=== PATIENT | male | born 1945 | race Caucasian/White ===

== ENCOUNTER 2020-03-19 08:15 | Inpatient (IN) | payer MEDICARE ==
[~2020-03-19] VITALS: Ht 177.8 cm; Wt 91.2 kg
--- NOTE | 2020-03-19 08:23 | NUR ---
[id number] home, c/o chest pain on and off since 010. aspirin and nitro given. Patient a/ox4, breathing even and unlabored, denies sob. Needs attended. Changed into gown, attached to the equipment monitor phototypesetting.
[2020-03-19 08:35] LABS: BASOPHILS % (AUTO) 0.3 % (0.0-2.0); EOSINOPHILS % (AUTO) 0.1 % (0.0-6.0); HEMATOCRIT 42 % (39-51); HEMOGLOBIN 14.1 g/dL (13.5-17.5); LYMPHOCYTES # (AUTO) 0.9 /CMM (0.8-4.8); LYMPHOCYTES % (AUTO) 8.8 % (20.0-44.0); MEAN CORPUSCULAR HGB CONC 33 g/dl (31.0-36.0); MEAN CORPUSCULAR VOLUME 92 fL (80-96); MONOCYTES # (AUTO) 0.7 /CMM (0.1-1.30); MONOCYTES % (AUTO) 6.5 % (2.0-12.0); NEUTROPHILS # (AUTO) 8.9 /CMM (1.8-8.9); NEUTROPHILS % (AUTO) 84.3 % (43.0-81.0); PLATELET COUNT (AUTO) 142 /CMM (150-450); RED BLOOD CELL COUNT(AUTO) 4.58 MIL/uL (4.5-6.0); WHITE BLOOD COUNT (AUTO) 10.6 K/uL (4.3-11.0)
[2020-03-19] MEDS ORDERED: MORPHINE SULFATE INJ 4 MG/ML DISP.SYRIN ONE (08:52)
[2020-03-19] MEDS ORDERED: ONDANSETRON HCL/PF 4 MG/2 ML VIAL ONE (08:52)
[2020-03-19 08:54] LABS: CALCIUM, SERUM 8.3 mg/dL (8.5-10.1); CARBON DIOXIDE 24 mmol/L (21-32); CHLORIDE 97 mmol/L (98-107); GLUCOSE 155 mg/dL (74-106); POTASSIUM 3.6 mmol/L (3.5-5.1); SODIUM SERUM 131 mmol/L (136-145); UREA NITROGEN, BLOOD 17 mg/dL (7-18)
[2020-03-19] MEDS ORDERED: MORPHINE SULFATE INJ 2 MG/ML DISP.SYRIN IV ONE ×2 (09:00→12:30)
[2020-03-19] MEDS ORDERED: ONDANSETRON HCL/PF 4 MG/2 ML VIAL IVP ONE ×2 (09:00→12:30)
--- NOTE | 2020-03-19 09:27 | NUR ---
[facility] cardiology paged pension adviser health safety specialist
--- NOTE | 2020-03-19 09:45 | NUR ---
dr. barahona at bedside for eval.
--- NOTE | 2020-03-19 09:52 | NUR ---
PATIENT TAKEN TO CT. IN STABLE CONDITION.
[2020-03-19] MEDS ORDERED: ESCI20TA PO (10:08)
[2020-03-19] MEDS ORDERED: CLOP75TA15 PO (10:08)
[2020-03-19] MEDS ORDERED: GABA300C PO (10:08)
[2020-03-19] MEDS ORDERED: HYDR12.55 PO (10:08)
[2020-03-19] MEDS ORDERED: MIRT15TA7 PO (10:08)
[2020-03-19] MEDS ORDERED: LOSA50TA39 PO (10:08)
[2020-03-19] MEDS ORDERED: ATOR20TA PO (10:08)
[2020-03-19] MEDS ORDERED: AMLO5TAB9 PO (10:08)
[2020-03-19] MEDS ORDERED: PANTOPRAZOLE 40 MG VIAL IV ONE (10:30)
[2020-03-19] MEDS ORDERED: NITROGLYCERIN 0.4 MG/TAB BOTTLE SL ONE ×2 (10:30→12:00)
[2020-03-19] MEDS ORDERED: IV NS 0.9% 500 ML IV PRN (10:30)
--- NOTE | 2020-03-19 10:30 | NUR ---
CALLED [facility] TRANSFER LINE TO [facility] PT REQUESTED TRANSFER. iNFORMED TO WAIT FOR MORE RADIOLOGY IMAGING RESULTS
[2020-03-19] MEDS ORDERED: PANTOPRAZOLE 40 MG VIAL ONE (10:38)
--- NOTE | 2020-03-19 10:53 | NUR ---
PATIENT TRANSFERRED TO CT.
[2020-03-19] MEDS ORDERED: NITROGLYCERIN 0.4 MG/TAB BOTTLE ONE (10:55)
[2020-03-19] MEDS ORDERED: METOPROLOL TARTRATE INJ 5 MG/5 ML AMPUL ONE ×3 (10:55→13:13)
[2020-03-19] MEDS: METOPROLOL TARTRATE INJ 5 MG/5 ML AMPUL IVP PRN ×9 (11:18→11:58)
[2020-03-19] MEDS ORDERED: IOHEXOL-350 100 ML VIAL IV ONE (11:22)
[2020-03-19] MEDS ORDERED: IV NS 0.9% 250 ML IV ONE (11:22)
--- NOTE | 2020-03-19 11:47 | NUR ---
SPOKE TO [facility] TRANSFER LINE. WAS INFORMED OF PT BEING ON THE WAITING LIST AND AWAITING FINANCIAL CLEARANCE. SENT FACESHEET TO [phone].
--- NOTE | 2020-03-19 12:13 | NUR ---
1110 received from ER via wheelchairl AAOx4 denies CP SOB, c/o mild abdominal pain3/10 with some nausea; consented to CTA Heart; tolerated procedure with Metoprolol 5mg IVP x 9 doses and NTG SL 0.4 mg Tablet at 1210 CTA Heart /ABD/Pelvis completed ; pt stable denies CP/SOB. wheeled back to ER room 4, Report given to RN
--- NOTE | 2020-03-19 12:20 | NUR ---
PATIENT CAME BACK FROM CT. RESTING IN BED. VITALS STABLE.
[2020-03-19] MEDS ORDERED: IV NS 0.9% 1,000 ML BAG IV ONE (12:30)
--- NOTE | 2020-03-19 12:39 | NUR ---
Patient refused Morphine and Zofran at this time, patient stated he's comfortable and pain is 2/10 at this time. Explained risks and benefits.
[2020-03-19 13:00] VITALS: BP 167/87
--- NOTE | 2020-03-19 13:23 | NUR ---
[facility] TRANSFER LINE INFORMED ME THAT THEY ARE ABLE TO TRANSFER THE PT TO THEIR HOSPITAL AFTER ADMISSION. DR TAI IS AWARE AND ABLE TO ACCEPT AT [facility]. WE ARE STILL AWAITING HOSPITAL BED AFTER FINANCIAL CLEARANCE
--- NOTE | 2020-03-19 13:31 | NUR ---
CALLED [facility]. VEGETABLE TRIMMER WAS PAGED.
--- NOTE | 2020-03-19 13:33 | NUR ---
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
--- NOTE | 2020-03-19 13:36 | NUR ---
going to 310.1
--- NOTE | 2020-03-19 14:03 | NUR ---
REPORT GIVEN TO NISSA GUO.
--- NOTE | 2020-03-19 14:30 | NUR ---
PATIENT TRANSFERRED TO ROOM 310-1 VIA ACLS PROTOCOL. NO DISTRESS NOTED. NEEDS ATTENDED. ENDORSED TO NISSA GUO.
[2020-03-19 16:10] LABS: THYROID STIMULATING HORMONE 1.18 uIU/mL (0.358-3.74)
--- NOTE | 2020-03-19 16:32 | NUR ---
Patient admitted with chest pain. Has hx aortic valve replacement at [facility] and patient requested transfer to [facility] hosp. Spoke with Ravin at [facility] transfer ctr [phone], patient is accepted and bed is available -3N room# 3022, accepting Deuce [address] Dr.Report to be called to [phone]. ALS ambulance arranged eta 5:30pm. Spoke with patient and Bisi [phone], agreed with current fl plan of care. Addendum: 03/19/20 at 1632 by EDWARD COFFMAN RN Amended: Links added.
--- NOTE | 2020-03-19 19:58 | NUR ---
TELE/RN NOTES RECEIVED REPORT FROM ER. PATIENT IN NO APPARENT DISTRESS NOTED. DENIES PAIN AT THIS TIME. INITIAL ASSESSMENT WAS DONE. PATIENT WAS TRANSFERRED TO [facility]. PATIENT IN NO APPARENT RESPIRATORY DISTRESS NOTED. PATIENT DENIES PAIN. MATERIAL REQUIREMENTS PLANNING MANAGER BY 2 EMT VIA AMBULANCE.
== END 2020-03-19 19:50 | disposition short-term general hospital (02) | DRG 303 ==
LOC: ER 08:20 → TELE 13:37
PROVIDERS: ADMIT Nurse Practitioner Acute Care; ATTEND Nurse Practitioner Acute Care
DX: I25.10 Atherosclerotic heart disease of native coronary artery without angina pectoris (principal); E87.1 Hypo-osmolality and hyponatremia; E78.5 Hyperlipidemia, unspecified; F32.9 Major depressive disorder, single episode, unspecified; G62.9 Polyneuropathy, unspecified; I10 Essential (primary) hypertension; Z95.2 Presence of prosthetic heart valve; I70.0 Atherosclerosis of aorta; Z79.899 Other long term (current) drug therapy; Z79.02 Long term (current) use of antithrombotics/antiplatelets; I70.8 Atherosclerosis of other arteries; K40.90 Unilateral inguinal hernia, without obstruction or gangrene, not specified as recurrent; K80.20 Calculus of gallbladder without cholecystitis without obstruction; T50.2X5A Adverse effect of carbonic-anhydrase inhibitors, benzothiadiazides and other diuretics, initial encounter; Y92.9 Unspecified place or not applicable
CPT/HCPCS: 36415; 71045-TC; 75574; 80048-TC; 80061-TC; 84439-TC; 84443-TC; 84484-TC; 85025-TC; 93307-TC; C9113; C9803-CS; G0378; J2270; J2405; J3490; J7030; J7040; J7050; Q9967